=== PATIENT | female | born 1995 | race African-American/Black ===

== ENCOUNTER 2021-03-18 11:43 | Emergency (ER) | payer MEDICAID ==
[2021-03-18] MEDS ORDERED: HYDROmorphone 0.5 MG/0.5 ML Syringe IVPUSH ONE ×2 (12:09→16:55)
[2021-03-18] MEDS ORDERED: Metoclopramide 10 MG/2 ML SDV IVPUSH ONE ×2 (12:10→16:55)
[2021-03-18] MEDS ORDERED: Dextrose 5%-0.9% NaCl 1,000 ML IV SCH ×2 (12:15→14:00)
--- NOTE | 2021-03-18 12:16 | EDM.PDOC ---
ED HPI GENERAL MEDICAL PROBLEM - General Chief Complaint: General Stated Complaint: HEADACHES/SWEATING AND CHILLS/ CANCER PATIENT Time Seen by Provider: 03/18/21 12:00 Source of Information: Reports: Patient History Limitations: Reports: No Limitations - History of Present Illness INITIAL COMMENTS - FREE TEXT/NARRATIVE: 26-year-old female of -[place] descent presents to the ED with diffuse abdominal pain nausea, vomiting and fever and chills starting yesterday. Patient states that she has stage III ovarian cancer diagnosed of 2019. She resides primarily in [place] and was set up to start chemotherapy but instead moved out here with her girlfriend and has yet to receive any chemotherapy or oncology consultation. 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 She started having abdominal pains back in August of last year and identified to have a enlarged right ovary in [place] and underwent a surgery to remove her right ovary. The right ovary returned as being cancerous. She therefore required a further midline laparotomy for staging purposes with omental biopsies etc. She has had no other surgery. She reports that she has lost probably 25 pounds in the last 4 months. She can hardly eat at all. She rarely has a bowel movement and is constipated most of the time. Denies any dysuria urgency or frequency at this time. Fever and chills primarily last night and again this morning. Has not been able to eat at all for the last 2 days. She is writhing on the bed and appears very uncomfortable with her abdominal pain. She states she has been using tramadol 50 mg every 6 hours and gabapentin 300 mg once daily for pain relief. She is finding neither one are helping her pain at present. Most of her pain is infraumbilical across the lower abdomen and into her lower back. Onset: Other (Patient has chronic abdominal pain just getting worse the last several days.) Duration: Chronic (Since diagnosis of ovarian malignancy 2019), Getting Worse Location: Reports: Abdomen (Use lower abdominal pain which is constant but getting worse), Back (. Back pain across her lower iliac crest bilaterally.) Quality: Reports: Ache, Other Severity: Severe (Vaginal sharp stabbing pain but otherwise a deep dull aching pain 9 out of 10) Improves with: Reports: None Worsens with: Reports: Other (Is worse with coughing and certain movements. She cannot stand fully erect to walk.) Context: Reports: Other (Known to have stage III ovarian cancer.). Denies: Activity, Exercise, Lifting, Sick Contact, Trauma Associated Symptoms: Reports: Cough, cough w sputum (Smokes and has a bit of a smoker's cough.), Diaphoresis, Fever/Chills ( Rare sputum production usually brownish in color.), Headaches, Loss of Appetite, Malaise, Nausea/Vomiting, Weakness. 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 (For fever relief.) Lower Pelvic Pain Score (Numeric/FACES): 10 - Related Data Allergies Allergy/AdvReac Type Severity Reaction Status Date / Time loracarbef [From Lorabid] Allergy Itching Verified 03/18/21 11:57 Home Meds: Home Meds Gabapentin [Neurontin] 600 mg PO BID #60 tab 03/18/21 [Rx] oxyCODONE HCl/Acetaminophen [Percocet 5-325 mg Tablet] 1 - 2 each PO Q4H PRN #36 tablet 03/18/21 [Rx] Past Medical History Oncologic (Cancer) History: Reports: Ovarian, Other (See Below) Other Oncologic History: ovararies removed - Past Surgical History Female Surgical History: Reports: Other (See Below) (Left ovary was removed at age 17 and apparently was a benign tumor such as a dermoid. Right ovary removed New Year's Ailyn 2020 returned as cancerous. She had a subsequent midline lower abdominal laparotomy for staging and was staged as a T3 in early November this year.) Social & Family History - Tobacco Use Tobacco Use Status *Q: Current Every Day Tobacco User Years of Tobacco use: 10 Packs/Tins Daily: 0.5 - Recreational Drug Use Recreational Drug Use: Yes Recreational Drug Type: Reports: Marijuana/Hashish Other Recreational Drug Type: daily - Living Situation & Occupation Living situation: Reports: with Significant Other (Lives with her girlfriend.) Occupation: Unemployed Social History Comment: Recently relocated to [facility] from [place], [place] ED ROS GENERAL - Review of Systems Review Of Systems: See Below Constitutional: Reports: Fever, Chills, Weakness, Fatigue, Decreased Appetite (Any 5 pounds in the last 4 months), Weight Loss HEENT: Reports: No Symptoms Respiratory: Reports: No Symptoms Cardiovascular: Reports: No Symptoms Endocrine: Reports: Fatigue GI/Abdominal: Reports: Abdominal Pain (Chronic abdominal pain for the last 3 months.), Constipation ( Gradually getting worse across the lower abdomen into her back.), Decreased Appetite (Marked decrease in appetite. She is reports nausea inhibits her ability to eat much.), Nausea, Vomiting (Did vomit last n ight. Bilious emesis.). Denies: Difficulty Swallowing, Hematemesis, Hematochezia : Reports: No Symptoms Musculoskeletal: Reports: Back Pain (Furred from the abdomen. Feels it in her iliac crests and posterior iliac crests and sacrum.) Skin: Reports: No Symptoms Neurological: Reports: No Symptoms Psychiatric: Reports: No Symptoms Hematologic/Lymphatic: Reports: No Symptoms Immunologic: Reports: No Symptoms ED EXAM, GENERAL - Physical Exam Exam: See Below Exam Limited By: No Limitations General Appearance: Alert, WD/WN, Moderate Distress (Patient is writhing on the bed from side to side curled up in the position. She prefers to lie on her right side.), Other (Temperature is 36.6 according to the nurse. However the patient does feel warm to palpation combined with having a fever. Heart rate is 98 in sinus respiratory it is 20 with O2 sats 100% room air BP 113/89.) Eye Exam: Bilateral Eye: Normal Inspection (No scleral icterus or blepharal pallor.), PERRL Throat/Mouth: Normal Inspection, Normal Lips, Normal Oropharynx ( moist.), Other (Tongue is) Head: Atraumatic, Normocephalic Neck: Normal Inspection, Supple, Non-Tender, Full Range of Motion. No: Lymphadenopathy (L), Lymphadenopathy (R) Respiratory/Chest: Lungs Clear, Normal Breath Sounds (Mild tachypnea.), Respiratory Distress. No: Decreased Breath Sounds, Crackles, Rales, Rhonchi Cardiovascular: Normal Peripheral Pulses, Regular Rate, Rhythm, No Edema, No Gallop, No Murmur, No Rub Peripheral Pulses: 3+: Carotid (L), Carotid (R), Posterior Tibial (L), Posterior Tibial (R), Dorsalis Pedis (L), Dorsalis Pedis (R) GI/Abdominal: No Organomegaly (Occult to palpate any organomegaly due to abdominal pain. I it appears that she does have peritonitis or peritoneal infiltrative cancer causing pain), Guarding, Tender (Generalized abdominal tenderness worse periumbilically and across both lower quadrants and suprapubically. There is guarding present.), Abnormal Bowel Sounds (All sounds are present but are few and far between.), Other (She has a Pfannenstiel incision across her lower abdomen which she states has been open twice. She had a midline laparotomy that was periumbilical to the pubic symphysis for staging of the cancer in early November of this year.). No: Rigid, Rebound Back Exam: Decreased Range of Motion. No: CVA Tenderness (L), CVA Tenderness (R) Extremities: Normal Inspection, Normal Range of Motion, Non-Tender, No Pedal Edema Neurological: Alert, Oriented, CN II-XII Intact, Normal Cognition, No Motor/Sensory Deficits. No: Normal Gait (Patient cannot stand fully erect to walk.) Psychiatric: Other (Good deal of pain.) Skin Exam: Warm, Dry, Intact, Normal Color, No Rash #1 Interpretation EKG Date: 03/18/21 Time: 13:04 Rhythm: NSR Rate (Beats/Min): 70 [place]: Normal P-Wave: Present QRS: Normal (Short LA interval) ST-T: Other (Nonspecific T wave flattening aVL) QT: Prolonged (Minimally prolonged) EKG Interpretation Comments: Borderline ECG Course - Vital Signs Last Recorded V/S: Last Vital Signs Temp 36.6 C 03/18/21 17:38 Pulse 72 03/18/21 17:38 Resp 18 03/18/21 17:38 BP 129/70 03/18/21 17:38 Pulse Ox 100 03/18/21 17:38 - Orders/Labs/Meds Orders: Active Orders 24 hr Category Date Time Status CULTURE BLOOD [BC] Stat Lab 03/18/21 12:37 Received CULTURE BLOOD [BC] Stat Lab 03/18/21 12:50 Received Dextrose 5%-0.9% NaCl [Dextrose 5%-Normal Saline] 1,000 Med 03/18/21 14:00 Active ml IV ASDIRECTED Sodium Chloride 0.9% [Saline Flush] Med 03/18/21 14:20 Active 10 ml FLUSH ONETIME PRN Blood Culture x2 Reflex Set [OM.PC] Stat Oth 03/18/21 12:11 Ordered Medication Orders Dextrose/Sodium Chloride (Dextrose 5%-Normal Saline) 1,000 mls @ 999 mls/hr IV ASDIRECTED [facility] Sodium Chloride (Sodium Chloride 0.9% 10 Ml Syringe) 10 ml FLUSH ONETIME PRN PRN Reason: IV FLUSH Last Admin: 03/18/21 14:36 Dose: 10 ml Documented by: ABEBE Labs: Laboratory Tests 03/18/21 03/18/21 03/18/21 Range/Units 12:50 12:50 12:50 WBC 6.46 (3.98-10.04) K/mm3 RBC 4.67 (3.98-5.22) M/mm3 Hgb 10.9 L (11.2-15.7) gm/dl Hct 34.3 (34.1-44.9) % MCV 73.4 L (79.4-94.8) fl MCH 23.3 L (25.6-32.2) pg MCHC 31.8 L (32.2-35.5) g/dl RDW Std Deviation 40.2 (36.4-46.3) fL Plt Count 559 H (182-369) K/mm3 MPV 9.0 L (9.4-12.3) fl Neutrophils % (Manual) 61 H (40-60) % Band Neutrophils % 0 (0-10) % Lymphocytes % (Manual) 23 (20-40) % Atypical Lymphs % 0 % Monocytes % (Manual) 14 H (2-10) % Eosinophils % (Manual) 2 (0.7-5.8) % Basophils % (Manual) 0 L (0.1-1.2) Platelet Estimate Adequate Polychromasia 2+ moderate Anisocytosis 2+ moderate Macrocytosis 2+ moderate RBC Morph Comment Abnormal ESR (0-20) mm/hr PT 11.2 (9.7-12.0) SECONDS INR 1.05 APTT 22.9 (21.7-31.4) SECONDS Sodium 141 (136-145) mEq/L Potassium 3.9 (3.5-5.1) mEq/L Chloride 101 (98-107) mEq/L Carbon Dioxide 27 (21-32) mEq/L Anion Gap 16.9 H (5-15) BUN 11 (7-18) mg/dL Creatinine 0.9 (0.55-1.02) mg/dL Est Cr Clr Drug Dosing 64.36 mL/min Estimated GFR (MDRD) > 60 (>60) mL/min BUN/Creatinine Ratio 12.2 L (14-18) Glucose 73 L (74-106) mg/dL Lactic Acid (0.4-2.0) mmol/L Calcium 10.5 H (8.5-10.1) mg/dL Magnesium 2.1 (1.8-2.4) mg/dl Total Bilirubin 0.8 (0.2-1.0) mg/dL AST 23 (15-37) U/L ALT 19 (14-59) U/L Alkaline Phosphatase 86 (46-116) U/L C-Reactive Protein <0.2 (<1.0) mg/dL Total Protein 8.7 H (6.4-8.2) g/dl Albumin 4.1 (3.4-5.0) g/dl Globulin 4.6 gm/dL Albumin/Globulin Ratio 0.9 L (1-2) Lipase (73-393) U/L Urine Color (Yellow) Urine Appearance (Clear) Urine pH (5.0-8.0) Ur Specific [place] (1.005-1.030) Urine Protein (Negative) Urine Glucose (UA) (Negative) Urine Ketones (Negative) Urine Occult Blood (Negative) Urine Nitrite (Negative) Urine Bilirubin (Negative) Urine Urobilinogen (0.2-1.0) Ur Leukocyte Esterase (Negative) Urine RBC (0-5) /hpf Urine WBC (0-5) /hpf Ur Squamous Epith Cells (0-5) /hpf Amorphous Sediment (NOT SEEN) /hpf Urine Bacteria (FEW) /hpf Urine Mucus (FEW) /hpf Ketones (0.0-0.3) mM Hepatitis C Antibody (NEGATIVE) SARS-CoV-2 RNA (SCOTT) (NEGATIVE) 03/18/21 03/18/21 03/18/21 Range/Units 12:50 12:50 12:50 WBC (3.98-10.04) K/mm3 RBC (3.98-5.22) M/mm3 Hgb (11.2-15.7) gm/dl Hct (34.1-44.9) % MCV (79.4-94.8) fl MCH (25.6-32.2) pg MCHC (32.2-35.5) g/dl RDW Std Deviation (36.4-46.3) fL Plt Count (182-369) K/mm3 MPV (9.4-12.3) fl Neutrophils % (Manual) (40-60) % Band Neutrophils % (0-10) % Lymphocytes % (Manual) (20-40) % Atypical Lymphs % % Monocytes % (Manual) (2-10) % Eosinophils % (Manual) (0.7-5.8) % Basophils % (Manual) (0.1-1.2) Platelet Estimate Polychromasia Anisocytosis Macrocytosis RBC Morph Comment ESR 19 (0-20) mm/hr PT (9.7-12.0) SECONDS INR APTT (21.7-31.4) SECONDS Sodium (136-145) mEq/L Potassium (3.5-5.1) mEq/L Chloride (98-107) mEq/L Carbon Dioxide (21-32) mEq/L Anion Gap (5-15) BUN (7-18) mg/dL Creatinine (0.55-1.02) mg/dL Est Cr Clr Drug Dosing mL/min Estimated GFR (MDRD) (>60) mL/min BUN/Creatinine Ratio (14-18) Glucose (74-106) mg/dL Lactic Acid 2.2 H* (0.4-2.0) mmol/L Calcium (8.5-10.1) mg/dL Magnesium (1.8-2.4) mg/dl Total Bilirubin (0.2-1.0) mg/dL AST (15-37) U/L ALT (14-59) U/L Alkaline Phosphatase (46-116) U/L C-Reactive Protein (<1.0) mg/dL Total Protein (6.4-8.2) g/dl Albumin (3.4-5.0) g/dl Globulin gm/dL Albumin/Globulin Ratio (1-2) Lipase (73-393) U/L Urine Color (Yellow) Urine Appearance (Clear) Urine pH (5.0-8.0) Ur Specific [place] (1.005-1.030) Urine Protein (Negative) Urine Glucose (UA) (Negative) Urine Ketones (Negative) Urine Occult Blood (Negative) Urine Nitrite (Negative) Urine Bilirubin (Negative) Urine Urobilinogen (0.2-1.0) Ur Leukocyte Esterase (Negative) Urine RBC (0-5) /hpf Urine WBC (0-5) /hpf Ur Squamous Epith Cells (0-5) /hpf Amorphous Sediment (NOT SEEN) /hpf Urine Bacteria (FEW) /hpf Urine Mucus (FEW) /hpf Ketones 0.02 (0.0-0.3) mM Hepatitis C Antibody (NEGATIVE) SARS-CoV-2 RNA (SCOTT) (NEGATIVE) 03/18/21 03/18/21 03/18/21 Range/Units 12:50 12:50 15:10 WBC (3.98-10.04) K/mm3 RBC (3.98-5.22) M/mm3 Hgb (11.2-15.7) gm/dl Hct (34.1-44.9) % MCV (79.4-94.8) fl MCH (25.6-32.2) pg MCHC (32.2-35.5) g/dl RDW Std Deviation (36.4-46.3) fL Plt Count (182-369) K/mm3 MPV (9.4-12.3) fl Neutrophils % (Manual) (40-60) % Band Neutrophils % (0-10) % Lymphocytes % (Manual) (20-40) % Atypical Lymphs % % Monocytes % (Manual) (2-10) % Eosinophils % (Manual) (0.7-5.8) % Basophils % (Manual) (0.1-1.2) Platelet Estimate Polychromasia Anisocytosis Macrocytosis RBC Morph Comment ESR (0-20) mm/hr PT (9.7-12.0) SECONDS INR APTT (21.7-31.4) SECONDS Sodium (136-145) mEq/L Potassium (3.5-5.1) mEq/L Chloride (98-107) mEq/L Carbon Dioxide (21-32) mEq/L Anion Gap (5-15) BUN (7-18) mg/dL Creatinine (0.55-1.02) mg/dL Est Cr Clr Drug Dosing mL/min Estimated GFR (MDRD) (>60) mL/min BUN/Creatinine Ratio (14-18) Glucose (74-106) mg/dL Lactic Acid (0.4-2.0) mmol/L Calcium (8.5-10.1) mg/dL Magnesium (1.8-2.4) mg/dl Total Bilirubin (0.2-1.0) mg/dL AST (15-37) U/L ALT (14-59) U/L Alkaline Phosphatase (46-116) U/L C-Reactive Protein (<1.0) mg/dL Total Protein (6.4-8.2) g/dl Albumin (3.4-5.0) g/dl Globulin gm/dL Albumin/Globulin Ratio (1-2) Lipase 125 (73-393) U/L Urine Color Yellow (Yellow) Urine Appearance Slt cloudy H (Clear) Urine pH 7.0 (5.0-8.0) Ur Specific [place] 1.015 (1.005-1.030) Urine Protein Negative (Negative) Urine Glucose (UA) Negative (Negative) Urine Ketones Negative (Negative) Urine Occult Blood Negative (Negative) Urine Nitrite Negative (Negative) Urine Bilirubin Negative (Negative) Urine Urobilinogen 1.0 (0.2-1.0) Ur Leukocyte Esterase Negative (Negative) Urine RBC 0-5 (0-5) /hpf Urine WBC 0-5 (0-5) /hpf Ur Squamous Epith Cells 0-5 (0-5) /hpf Amorphous Sediment Few H (NOT SEEN) /hpf Urine Bacteria Moderate H (FEW) /hpf Urine Mucus Few (FEW) /hpf Ketones (0.0-0.3) mM Hepatitis C Antibody Negative (NEGATIVE) SARS-CoV-2 RNA (SCOTT) (NEGATIVE) 03/18/21 03/18/21 Range/Units 15:15 16:15 WBC (3.98-10.04) K/mm3 RBC (3.98-5.22) M/mm3 Hgb (11.2-15.7) gm/dl Hct (34.1-44.9) % MCV (79.4-94.8) fl MCH (25.6-32.2) pg MCHC (32.2-35.5) g/dl RDW Std Deviation (36.4-46.3) fL Plt Count (182-369) K/mm3 MPV (9.4-12.3) fl Neutrophils % (Manual) (40-60) % Band Neutrophils % (0-10) % Lymphocytes % (Manual) (20-40) % Atypical Lymphs % % Monocytes % (Manual) (2-10) % Eosinophils % (Manual) (0.7-5.8) % Basophils % (Manual) (0.1-1.2) Platelet Estimate Polychromasia Anisocytosis Macrocytosis RBC Morph Comment ESR (0-20) mm/hr PT (9.7-12.0) SECONDS INR APTT (21.7-31.4) SECONDS Sodium (136-145) mEq/L Potassium (3.5-5.1) mEq/L Chloride (98-107) mEq/L Carbon Dioxide (21-32) mEq/L Anion Gap (5-15) BUN (7-18) mg/dL Creatinine (0.55-1.02) mg/dL Est Cr Clr Drug Dosing mL/min Estimated GFR (MDRD) (>60) mL/min BUN/Creatinine Ratio (14-18) Glucose (74-106) mg/dL Lactic Acid 1.3 (0.4-2.0) mmol/L Calcium (8.5-10.1) mg/dL Magnesium (1.8-2.4) mg/dl Total Bilirubin (0.2-1.0) mg/dL AST (15-37) U/L ALT (14-59) U/L Alkaline Phosphatase (46-116) U/L C-Reactive Protein (<1.0) mg/dL Total Protein (6.4-8.2) g/dl Albumin (3.4-5.0) g/dl Globulin gm/dL Albumin/Globulin Ratio (1-2) Lipase (73-393) U/L Urine Color (Yellow) Urine Appearance (Clear) Urine pH (5.0-8.0) Ur Specific [place] (1.005-1.030) Urine Protein (Negative) Urine Glucose (UA) (Negative) Urine Ketones (Negative) Urine Occult Blood (Negative) Urine Nitrite (Negative) Urine Bilirubin (Negative) Urine Urobilinogen (0.2-1.0) Ur Leukocyte Esterase (Negative) Urine RBC (0-5) /hpf Urine WBC (0-5) /hpf Ur Squamous Epith Cells (0-5) /hpf Amorphous Sediment (NOT SEEN) /hpf Urine Bacteria (FEW) /hpf Urine Mucus (FEW) /hpf Ketones (0.0-0.3) mM Hepatitis C Antibody (NEGATIVE) SARS-CoV-2 RNA (SCOTT) Negative (NEGATIVE) Meds: Medications Generic Name Dose Route Start Last Admin Trade Name Abel PRN Reason Stop Dose Admin Dextrose/Sodium Chloride 1,000 mls @ 999 mls/hr 03/18/21 14:00 Dextrose 5%-Normal Saline IV ASDIRECTED RONNIE Sodium Chloride 10 ml 03/18/21 14:20 03/18/21 14:36 Sodium Chloride 0.9% 10 Ml Syringe FLUSH 10 ml ONETIME PRN Administration IV FLUSH Discontinued Medications Generic Name Dose Route Start Last Admin Trade Name Lucienq PRN Reason Stop Dose Admin Acetaminophen 650 mg 03/18/21 12:38 03/18/21 12:57 Acetaminophen 325 Mg Tab PO 03/18/21 12:39 650 mg NOW STA Administration Hydromorphone HCl 0.5 mg 03/18/21 12:09 03/18/21 12:41 Hydromorphone 0.5 Mg/0.5 Ml Syringe IVPUSH 03/18/21 12:10 0.5 mg ONETIME ONE Administration Hydromorphone HCl 0.5 mg 03/18/21 16:55 03/18/21 17:14 Hydromorphone 0.5 Mg/0.5 Ml Syringe IVPUSH 03/18/21 16:56 0.5 mg ONETIME ONE Administration Dextrose/Sodium Chloride 1,000 mls @ 500 mls/hr 03/18/21 12:15 03/18/21 14:10 Dextrose 5%-Normal Saline IV 999 mls/hr ASDIRECTED RONNIE Infusion Iopamidol 100 ml 03/18/21 14:20 03/18/21 14:36 Iopamidol 612 Mg/Ml 100 Ml Bottle IVPUSH 03/18/21 14:21 100 ml ONETIME ONE Administration Metoclopramide HCl 5 mg 03/18/21 12:10 03/18/21 12:39 Metoclopramide 10 Mg/2 Ml Sdv IVPUSH 03/18/21 12:11 5 mg ONETIME ONE Administration Metoclopramide HCl 5 mg 03/18/21 16:55 03/18/21 17:12 Metoclopramide 10 Mg/2 Ml Sdv IVPUSH 03/18/21 16:56 5 mg ONETIME ONE Administration - Radiology Interpretation Free Text/Narrative:: 26-year-old female of -[place] descent presents to the ED complaining of diffuse abdominal pain which is chronic for the last 3 months. Patient was diagnosed with right ovarian cancer New 's Ailyn of 2019. She then underwent further laparotomy for staging procedure and was identified to have stage III ovarian cancer. She is originally from [place] and recently relocated to [facility] with her girlfriend. Patient has lost approximately 25 p ounds of weight over the last 4 months. She finds it very difficult to eat much. She is primarily taking fluids. Chronic problems with constipation. Last night she developed fever chills and diaphoresis. This occurred during the night and again this morning. She denies any dysuria. Minimal cough from cigarette smoking. She does not believe she has been in contact with anybody with COVID-19 illness. She gives no history of IV drug abuse. She takes marijuana on a daily basis to help with the nausea . She denies knowing that she would have any hepatitis C or HIV. Patient vomited bilious emesis last night and again this morning. Most of her pain is infraumbilical and across her lower abdomen radiating to her back. It is suspect by history that she has invasion of the omentum and peritoneum from ovarian cancer. Clinically she does not exhibit ascites. Plan she will have 1 view chest x-ray performed. She will have CT of the abdomen with IV contrast only since she cannot keep down oral contrast. She will be given Dilaudid 0.5 mg IV and Reglan 5 mg IV for nausea and pain relief. Lab work will be a septic work-up including lactic acid CRP and sedimentation rate. Serum ketones will also be obtained. IV will be D5 normal saline at 500 mils per hour. - Re-Assessments/Exams Free Text/Narrative Re-Assessment/Exam: 03/18/21 12:48 chest x-ray done portably reveals heart size and mediastinum to be normal. Lungs are clear with no acute parenchymal changes. No pulmonary nodules are seen. Minimal scoliosis appreciated. 03/18/21 13:05 patient reports her pain is down to a 2 and is much more tolerable. Awaiting her renal function before proceeding with CT of the abdomen with IV contrast. 03/18/21 13:55 White blood cell count is normal at 6.46. Differential shows 61% neutrophils. Hemoglobin is low at 10.9 with hematocrit of 34.3. MCV is low at 73.4 suggesting iron deficiency anemia platelet count is elevated at 559,000. The slide reveals 2+ polychromasia. 2+ anisocytosis. 2+ macrocytosis. Sedimentation rate is 19. Sodium is 141 with potassium of 3.9. Chloride 101 with a bicarb of 27. Anion gap mildly elevated at 16.9. BUN is 11 with a creatinine of 0.9 GFR is greater than 60. Glucose is low at 73. Lactic acid is elevated at 2.2. Calcium is 10.5 magnesium is 2.1. Liver function is normal. C-reactive protein is less than 0.2. Total protein 8.7 with an albumin fraction of 4.1 ketones 0.02. Patient will therefore have CT of the abdomen/pelvis performed with IV contrast since renal function is normal. Fluids will be D5 normal saline at 999 mils per hour. With a normal white count and a normal CRP I would not proceed with IV antibiotics at this time. 03/18/21 15:25: CT of the abdomen pelvis has been completed with IV contrast only. Pelvis shows questionable densities. First finding is located within the presacral region measuring 4.2 cm and second lies posterior to the bladder measuring 3.8 cm. Additional third density is noted anterior to the bladder measuring 2.9 cm. Questionable fourth density is seen to the right side of the presacral region measuring 4.3 cm. Visualized lung bases show nothing acute. Liver contains no focal abnormality. Spleen appears to be within normal limits. Adrenal gland shows no nodules. Pancreas shows no abnormality. Gallbladder contains no calcified gallstones. The stomach is half full of food. Kidneys show symmetric contrast enhancement without hydronephrosis or mass. Abdominal aorta shows no aneurysm. No retroperitoneal adenopathy or mesenteric abnormalities are appreciated. No discrete pelvic adenopathy is seen. Delayed images show contrast within the distal ureters and within the urinary bladder. Bone window settings were reviewed which show no acute osseous abnormalities. 03/18/21 16:45 Urinalysis shows it to be slightly cloudy. Leukocyte esterase is negative and the micro reveals no signs of an infection. It does show moderate bacteria. Ketones came back at 0.02. Hepatitis C antibody is negative and the COVID-19 screen was negative as well. Serum lipase is 125. Second lactic acid level was drawn at 1600 hrs. but is not yet available 03/18/21 17:24 I am placing numbers in the chart as we try to get records from [facility] in [place] where the patient had her diagnosis made but they were closed and medical records would not answer. She did see a doctor named Tay Escobar? Believes that is the correct spelling. He is an [employer] physician. His office number was [phone]. Medical records at that hospital is [phone]. I have asked the patient to follow-up with Dr. Monica Armstrong here in [place] to manage her pain management and to get her into a oncologist as soon as able. She did not wish to be transferred to [place] today. Also they would not have much of a plan in order since tomorrow is Monday and they do not have any medical records available to them. Medications have been changed with discontinuation of tramadol and replace it with Percocet 5/325 mg ideally 1 tablet every 4-6 hours as needed for pain relief. Increase her gabapentin to 600 mg at bedtime for the next week and then to be 600 mg twice daily morning and bedtime for pain relief. Also placed on MiraLAX 17 g daily to prevent constipation while taking pain medications. Advised taking 5 scoops of MiraLAX today with 20 ounces of Gatorade by mouth once to get her bowels working today. The temperature was 97.7 degrees and she does not feel warm to palpation. 03/18/21 17:55: Second lactic acid is down to 1.3. 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 Instructions: Ovarian Cancer, Constipation, Adult Referrals: PCP,Not In Area [Primary Care Provider] - Forms: ED Department Discharge Additional Instructions: Evaluation in the emergency room today in regards to diffuse lower abdominal pain with known diagnosis of stage III ovarian cancer. Diagnosis of ovarian cancer occurred around this year with subsequent laparotomy performed for staging procedure in early November of this year while in [place]. At this time you have not pursued chemotherapy treatment.. In the emergency room today we identified that you were mildly dehydrated. There was no signs of any infection although you did have a low-grade fever. Chest x-ray was completely normal. Urinalysis was completely normal. CT of the abdomen and pelvis was performed which shows 4-5 large nodules behind and in front of the urinary bladder which would cause you to have a feeling of need to empty your bladder quite frequently as well as pressure in the perineum and rectum giving with a feeling that you needed to have a bowel movement. The liver did not show any signs of cancer at this time. You were given Dilaudid 0.5 mg IV x2 doses for pain relief which worked well for you. I would suggest a change in your pain management protocol to increase her gabapentin to 600 mg at bedtime for the next week and then you may increase it to 600 mg in the morning and 600 mg at bedtime for pain relief. Stop the 300 mg dosage in the morning or take 2 at bedtime until they are gone. Stop the tramadol as it does not play well with higher doses of gabapentin. We will replace it with Percocet tabs 5/325 mg 1 or 2 tablets I suspect 1 will be enough every 4-6 hours as needed for pain relief. All pain medicine causes constipation. Suggest you purchasing a cookie jar or canister of MiraLAX powder and take 17 g every single day while on pain me dication. I would suggest taking 5 scoops of MiraLAX mixed with 20 ounces of Gatorade today to get your bowels moving overnight and tomorrow. You need to follow-up with a primary care physician here in [place] that can manage your pain and coordinate care with oncology services in [place]. I would suggest arranging an appointment to see Dr. Monica Armstrong [facility] in [facility]. She practices on the third floor of the hospital in the medical clinic. To arrange an appointment please call . Information needs to be received from [facility] in [place] where you were diagnosed with the cancer of the ovary especially for oncology services at [facility] in [place]. Sepsis Event Note (ED) - Focused Exam Vital Signs: Vital Signs Temp Temp Pulse Resp BP Pulse Ox 03/18/21 17:38 36.6 C 72 18 129/70 100 03/18/21 16:32 36.2 C 66 18 123/94 H 100 03/18/21 14:43 36.2 C 78 18 127/85 98 03/18/21 12:57 36.7 C 03/18/21 12:25 36.1 C 90 20 120/84 100 03/18/21 12:03 36.6 C 98 20 113/89 100 - My Orders Last 24 Hours: My Active Orders 03/18/21 12:11 Blood Culture x2 Reflex Set [OM.PC] Stat 03/18/21 12:37 CULTURE BLOOD [BC] Stat 03/18/21 12:50 CULTURE BLOOD [BC] Stat 03/18/21 14:00 Dextrose 5%-0.9% NaCl [Dextrose 5%-Normal Saline] 1,000 ml IV ASDIRECTED 03/18/21 14:20 Sodium Chloride 0.9% [Saline Flush] 10 ml FLUSH ONETIME PRN - Assessment/Plan Last 24 Hours: My Active Orders 03/18/21 12:11 Blood Culture x2 Reflex Set [OM.PC] Stat 03/18/21 12:37 CULTURE BLOOD [BC] Stat 03/18/21 12:50 CULTURE BLOOD [BC] Stat 03/18/21 14:00 Dextrose 5%-0.9% NaCl [Dextrose 5%-Normal Saline] 1,000 ml IV ASDIRECTED 03/18/21 14:20 Sodium Chloride 0.9% [Saline Flush] 10 ml FLUSH ONETIME PRN
[2021-03-18] MEDS ORDERED: Acetaminophen 325 MG Tab PO STA (12:38)
--- NOTE | 2021-03-18 12:47 | CR ---
Chest: Portable view of the chest was obtained. Comparison: No prior chest imaging is available. Heart size and mediastinum are normal. Lungs are clear with no acute parenchymal change. No pulmonary nodules are seen. Minimal scoliosis is noted. Impression: 1. Nothing acute is appreciated on portable chest x-ray. Diagnostic code #2
[2021-03-18] MEDS ORDERED: Sodium Chloride 0.9% 10 ML Syringe FLUSH PRN (14:20)
[2021-03-18] MEDS ORDERED: Iopamidol 612 MG/ML 100 ML Bottle IVPUSH ONE (14:20)
--- NOTE | 2021-03-18 15:05 | CT ---
CT abdomen and pelvis Technique: Multiple axial sections were obtained from above the dome of the diaphragm inferiorly through the pubic symphysis. Intravenous contrast was utilized. Delayed images were obtained through the pelvis. Reconstructed coronal and sagittal images were also obtained. Comparison: No previous abdominal and/or pelvic imaging available. Findings: Pelvis shows questionable densities. First finding is located within the presacral region measuring 4.2 cm and second lies posterior to the bladder measuring 3.8 cm. Additional third density is noted anterior to the bladder measuring 2.9 cm. Questionable fourth density is seen to the right side of the presacral region measuring 4.3 cm. Visualized lung bases show nothing acute. Liver contains no focal abnormality. Spleen appears within normal limits. Adrenal glands show no nodule. Pancreas shows no abnormality. Gallbladder contains no calcified gallstones. Kidneys show symmetric contrast enhancement without hydronephrosis or mass. Abdominal aorta shows no aneurysm. No retroperitoneal adenopathy or mesenteric abnormalities are appreciated. No discrete pelvic adenopathy is seen. Delayed images show contrast within the distal ureters and within the bladder. Bone window settings were reviewed which show no acute osseous abnormality. Impression: 1. Mass-like objects within the pelvis as described above. Difficult to exclude areas of tumor. These could be confirmed with delayed oral contrast study if clinically needed. 2. No additional abnormality is appreciated. Diagnostic code #9
== END 2021-03-18 17:45 | disposition home or self-care (01) ==
LOC: JD.ED 11:43
DX: K59.01 Slow transit constipation (principal); C56.2 Malignant neoplasm of left ovary; C79.89 Secondary malignant neoplasm of other specified sites; M54.9 Dorsalgia, unspecified; Z88.1 Allergy status to other antibiotic agents; Z20.822 Contact with and (suspected) exposure to COVID-19; Z79.899 Other long term (current) drug therapy; Z72.0 Tobacco use
CPT/HCPCS: 36415; 71045; 74177; 80053; 81001; 82009; 83605; 83690; 83735; 85007; 85027; 85610; 85652; 85730; 86140; 86803; 87040; 87635; 93005; 96374; 96375; 96376; 99284; A9270; J1170; J2765; J7042; Q9967; 93010; U0002

== ENCOUNTER 2021-04-16 11:07 | Emergency (ER) | payer MEDICAID ==
[2021-04-16] MEDS ORDERED: HYDROmorphone 1 MG/ML Syringe IM ONE (11:21)
[2021-04-16] MEDS ORDERED: Promethazine 25 MG/ML SDV IM ONE (11:22)
--- NOTE | 2021-04-16 11:23 | EDM.PDOC ---
ED HPI GENERAL MEDICAL PROBLEM - General Chief Complaint: General Stated Complaint: CANCER PT / PAIN ALL OVER Time Seen by Provider: 04/16/21 11:12 Source of Information: Reports: Patient, Family (friend) History Limitations: Reports: No Limitations - History of Present Illness INITIAL COMMENTS - FREE TEXT/NARRATIVE: 26-year-old female of -[place] descent presents to the ED once again primarily for pain management. She has been diagnosed with stage III cancer of the cervix on 2019. This was identified while she was residing in [place]. She was set up for chemotherapy protocol there but elected to move out here with her girlfriend and is yet to see oncology and is currently not receiving any therapy. She continues to have severe abdominal pain rating through to her back. She states she voids about every 15 to 20 minutes to get some relief of the discomfort. She has to strain and push her bowels to work but stool is staying soft. She has been using a combination of gabapentin and Percocet 5/325 mg tablet for pain relief. She has run out of pain medication this is the reason she is attending the ED today. Please refer to notes written on March 18 visit for further information. A CT scan done at that visit revealed for large masses within the pelvis. First finding was located within the presacral region measuring about 4.2 cm and the second and lies posterior to the bladder measuring about 3.8 cm. Additional third density is noted anterior to the bladder measuring 2.9 cm. Questionable fourth density was seen to the right side of the presacral region measuring 4.3 cm. Onset: Other (Patient was diagnosed with cervical cancer with metastatic disease to her pelvis i.e. stage III disease on 2019 in [place]. For whatever reason she is opted not to undergo chemotherapy) Duration: Constant (.), Getting Worse Location: Reports: Abdomen, Back, Pelvis Quality: Reports: Ache, Pressure, Throbbing Severity: Severe Improves with: Reports: Medication (She gets transient relief with Percocet tablets.) Worsens with: Reports: Other (Full bladder will make the pain worse.) Context: Reports: Other (Known to have stage III cervical cancer with multiple nodules present in her pelvis on CT scan done March 18.). Denies: Activity, Exercise, Lifting, Sick Contact, Trauma Associated Symptoms: Reports: No Other Symptoms, Loss of Appetite, Malaise. Denies: Confusion, Chest Pain, Cough, cough w sputum, Diaphoresis, Fever/Chills (Some days are better than others. 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.) Abdominal Pain Score (Numeric/FACES): 10 - Related Data Allergies Allergy/AdvReac Type Severity Reaction Status Date / Time loracarbef [From Lorabid] Allergy Itching Verified 04/16/21 11:15 Home Meds: Home Meds Gabapentin [Neurontin] 600 mg PO BID #60 tab 03/18/21 [Rx] oxyCODONE HCl/Acetaminophen [Percocet 5-325 mg Tablet] 1 - 2 each PO Q4H PRN #36 tablet 03/18/21 [Rx] Gabapentin [Neurontin] 600 mg PO TID #90 tab 04/16/21 [Rx] oxyCODONE HCl/Acetaminophen [Percocet 5-325 mg Tablet] 1 - 2 each PO Q4H PRN #36 tablet 04/16/21 [Rx] 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: 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 (Cancer) History: Reports: Ovarian, Other (See Below) Other Oncologic History: ovararies removed - Past Surgical History Female Surgical History: Reports: Hysterectomy, Other (See Below) Other Female Surgeries/Procedures: cervical cancer Social & Family History - Tobacco Use Tobacco Use Status *Q: Current Every Day Tobacco User Years of Tobacco use: 10 Packs/Tins Daily: 0.5 - Caffeine Use Caffeine Use: Reports: Coffee, Soda - Recreational Drug Use Recreational Drug Use: Yes Drug Use in Last 12 Months: Yes - Living Situation & Occupation Living situation: Reports: with Significant Other (Lives with her girlfriend.) Occupation: Unemployed ED ROS GENERAL - Review of Systems Review Of Systems: See Below Constitutional: Reports: Malaise, Weakness, Fatigue, Decreased Appetite, Weight Loss. Denies: Fever, Chills HEENT: Reports: No Symptoms Respiratory: Reports: No Symptoms Cardiovascular: Reports: No Symptoms Endocrine: Reports: Fatigue GI/Abdominal: Reports: Abdominal Pain (See history of present illness.), Nausea (Rare.). Denies: Constipation, Diarrhea, Vomiting : Reports: Frequency, Pain. Denies: Incontinence (She voids almost every 20 minutes to get some relief of the pelvic pain.), Irregular Menses Musculoskeletal: Reports: Back Pain (Diffuse low back sacral pain. Known to have a tumor resting on the presacral area over the hypogastric nerve plexus) Skin: Reports: No Symptoms Neurological: Reports: No Symptoms Psychiatric: Reports: No Symptoms Hematologic/Lymphatic: Reports: No Symptoms ED EXAM, GENERAL - Physical Exam Exam: See Below Exam Limited By: No Limitations General Appearance: Alert, WD/WN, Moderate Distress, Other (She prefers to lie curled up in the position left lateral decubitus position. She answers all questions appropriately. Temperature is 36.3 degrees with a heart rate of 102 and sinus respiratory to 20 with O2 sats of 100%. BP is 121/80.) Eye Exam: Bilateral Eye: Normal Inspection (No scleral icterus no blepharal pallor.), PERRL Throat/Mouth: Other Neck: Normal Inspection (Tongue is mildly dry and coated.), Supple, Non-Tender, Full Range of Motion. No: Lymphadenopathy (L), Lymphadenopathy (R) Respiratory/Chest: No Respiratory Distress, Lungs Clear, Normal Breath Sounds, No Accessory Muscle Use Cardiovascular: Normal Peripheral Pulses, Regular Rate, Rhythm, No Edema, No Gallop, No Murmur, No Rub Peripheral Pulses: 3+: Carotid (L), Carotid (R), Posterior Tibial (L), Posterior Tibial (R), Dorsalis Pedis (L), Dorsalis Pedis (R) GI/Abdominal: Normal Bowel Sounds, Tender (Tender lower abdomen from infraumbilical area to pubic symphysis.) Back Exam: Normal Inspection, Full Range of Motion. No: CVA Tenderness (L), CVA Tenderness (R), Decreased Range of Motion Extremities: Normal Inspection, Normal Range of Motion, Non-Tender, No Pedal Edema Neurological: Alert, Oriented, CN II-XII Intact, Normal Cognition Psychiatric: Normal Affect, Normal Mood Skin Exam: Warm, Dry, Intact, Normal Color, No Rash Course - Vital Signs Last Recorded V/S: Last Vital Signs Temp 36.3 C 04/16/21 11:13 Pulse 102 H 04/16/21 11:13 Resp 20 04/16/21 11:13 BP 121/80 04/16/21 11:13 Pulse Ox 100 04/16/21 11:13 - Orders/Labs/Meds Orders: Active Orders 24 hr Category Date Time Status Bladder Scan [RC] ASDIRECTED Care 04/16/21 11:21 Active URINALYSIS W/MICROSCOPIC [UA W/MICROSCOPIC] [URIN] Stat Lab 04/16/21 12:00 Received Meds: Medications Discontinued Medications Generic Name Dose Route Start Last Admin Trade Name Abel PRN Reason Stop Dose Admin Hydromorphone HCl 1 mg 04/16/21 11:21 04/16/21 11:35 Hydromorphone 1 Mg/Ml Syringe IM 04/16/21 11:22 1 mg ONETIME ONE Administration Promethazine HCl 12.5 mg 04/16/21 11:22 04/16/21 11:35 Promethazine 25 Mg/Ml Sdv IM 04/16/21 11:23 12.5 mg ONETIME ONE Administration - Radiology Interpretation Free Text/Narrative:: 26-year-old female of -Romanian descent presents once again to the ED primarily for pain management. Patient has been diagnosed with cancer of the cervix with metastatic disease to her pelvis on 2019. This diagnosis was made in [place]. She was offered chemotherapy in [place] but opted to come out to [place] to spend time with her girlfriend as the prognosis is grim. She was diagnosed with stage III disease with metastatic disease in multiple areas of her pelvis. She has yet to seek oncologist opinion or chemotherapy. She is having significant urinary frequency I believe because of pelvic tumor invasion in the bladder and this is on the way she can get relief. We did a post residual bladder scan on her today and it revealed only 30 mils in her bladder. I we will will refill her Percocet tabs 5/325 mg strength which she usually takes 1 tablet every 4-6 hours for pain relief. 36 tablets were provided. I increased her gabapentin to 600 mg 3 times daily from twice daily dosing. She needs to find a primary care physician or follow-up with oncology as she had been directed to do so on last visit. - Re-Assessments/Exams Free Text/Narrative Re-Assessment/Exam: 04/16/21 12:02 post residual urine on bladder scan is only 30 mils. Therefore the irritation of her urinary bladder is secondary to the tumors adjacent to the bladder on CT scan done March 18. Prescription has been written for Percocet tabs 5/325 mg strength 1 or 2 every 4-6 hours necessary for pain relief. She tends to take only 1 at a time. Departure - Departure Time of Disposition: 12:06 Disposition: Home, Self-Care 01 Condition: Serious Clinical Impression: Cervical cancer, FIGO stage IIA1, Encounter for pain management - Discharge Information *PRESCRIPTION DRUG MONITORING PROGRAM REVIEWED*: Not Applicable *COPY OF PRESCRIPTION DRUG MONITORING REPORT IN PATIENT FRITZ: Not Applicable Prescriptions: Gabapentin [Neurontin] 600 mg PO TID #90 tab oxyCODONE HCl/Acetaminophen [Percocet 5-325 mg Tablet] 1 - 2 each PO Q4H PRN #36 tablet PRN Reason: pain relief. Referrals: PCP,None [Primary Care Provider] - Forms: ED Department Discharge Additional Instructions: Evaluation in the emergency room today in regards to known primary cancer of the cervix with metastases to the pelvis. Continued irritation of the urinary bladder from pelvic tumors and pressure in the pelvis again from pelvic tumors clinically. These were identified on CT scan done March 18 when you were in the ED. A bladder scan done today after you had passed your water revealed that you are not retaining urine. There was only 30 mils of urine left in the bladder which is in the normal range. Continue treatment with gabapentin although I would suggest increasing the dosage to 600 mg 3 times daily from twice daily use. Continue Percocet tabs 5/325 mg strength 1 or 2 tablets every 4-6 hours necessary for pain relief. Follow-up with oncologist when able. Sepsis Event Note (ED) - Evaluation Sepsis Screening Result: No Definite Risk - Focused Exam Vital Signs: Vital Signs Temp Pulse Resp BP Pulse Ox 04/16/21 11:13 36.3 C 102 H 20 121/80 100 - My Orders Last 24 Hours: My Active Orders 04/16/21 11:21 Bladder Scan [RC] ASDIRECTED 04/16/21 12:00 URINALYSIS W/MICROSCOPIC [UA W/MICROSCOPIC] [URIN] Stat - Assessment/Plan Last 24 Hours: My Active Orders 04/16/21 11:21 Bladder Scan [RC] ASDIRECTED 04/16/21 12:00 URINALYSIS W/MICROSCOPIC [UA W/MICROSCOPIC] [URIN] Stat
== END 2021-04-16 12:40 | disposition home or self-care (01) ==
LOC: JD.ED 11:07
DX: C76.0 Malignant neoplasm of head, face and neck (principal); Z88.8 Allergy status to other drugs, medicaments and biological substances; Z79.899 Other long term (current) drug therapy; Z72.0 Tobacco use
CPT/HCPCS: 51798; 81001; 96372; 99284; J1170; J2550

== ENCOUNTER 2021-04-28 06:38 | Emergency (ER) | payer MEDICAID ==
--- NOTE | 2021-04-28 07:13 | EDM.PDOC ---
ED HPI GENERAL MEDICAL PROBLEM - General Chief Complaint: Chest Pain Stated Complaint: [facility] Time Seen by Provider: 04/28/21 07:05 - History of Present Illness INITIAL COMMENTS - FREE TEXT/NARRATIVE: 26-year-old female presents the emergency room with abdominal and chest pain. This pain started to worsen last night and progressively got much worse this morning. Patient tried Percocet and this did not seem to help. Apparently patient has a history of primary ovarian cancer with some degree of metastatic disease. The patient was diagnosed the way I understand it early this last winter but she has not started treatment for this yet. The patient is in quite a bit of pain and is unable to provide much history. Chest Pain Score (Numeric/FACES): 10 - Related Data Allergies Allergy/AdvReac Type Severity Reaction Status Date / Time loracarbef [From Lorabid] Allergy Itching Verified 04/16/21 11:15 Home Meds: Home Meds Gabapentin [Neurontin] 600 mg PO BID #60 tab 03/18/21 [Rx] oxyCODONE HCl/Acetaminophen [Percocet 5-325 mg Tablet] 1 - 2 each PO Q4H PRN #36 tablet 04/16/21 [Rx] Past Medical History [employer] History: Reports: Oncologic (Cancer) History: Reports: Ovarian, Other (See Below) Other Oncologic History: ovararies removed - Past Surgical History Female Surgical History: Reports: Hysterectomy, Other (See Below) Other Female Surgeries/Procedures: cervical cancer Social & Family History - Tobacco Use Tobacco Use Status *Q: Unknown Ever Used Tobacco - Caffeine Use Caffeine Use: Reports: Coffee, Soda - Living Situation & Occupation Living situation: Reports: with Significant Other (Lives with her girlfriend.) Occupation: Unemployed ED ROS GENERAL - Review of Systems Review Of Systems: See Below Constitutional: Denies: Chills HEENT: Reports: No Symptoms Respiratory: Reports: Pleuritic Chest Pain Cardiovascular: Reports: Chest Pain GI/Abdominal: Reports: Abdominal Pain : Reports: No Symptoms ED EXAM, GENERAL - Physical Exam Exam: See Below Exam Limited By: No Limitations General Appearance: Alert, Severe Distress Head: Atraumatic, Normocephalic Neck: Normal Inspection, Supple, Non-Tender, Full Range of Motion Respiratory/Chest: No Respiratory Distress, Lungs Clear, Normal Breath Sounds, Chest Non-Tender Cardiovascular: Regular Rate, Rhythm, No Edema, No Murmur GI/Abdominal: Normal Bowel Sounds, Soft, Tender (Has diffuse tenderness but it is much worse in the epigastric area. No rigidity or rebound) Back Exam: Normal Inspection. No: CVA Tenderness (L), CVA Tenderness (R) Extremities: Normal Inspection, No Pedal Edema Psychiatric: Anxious #1 Interpretation EKG Date: 04/28/21 Rhythm: NSR Rate (Beats/Min): 81 [place]: Normal P-Wave: Present QRS: Normal ST-T: Normal (T wave flattening in V2 inverted T waves in V3) QT: Normal Comparison: NA - No Prior EKG EKG Interpretation Comments: Borderline EKG there is some anterior T wave flattening Course - Vital Signs Last Recorded V/S: Last Vital Signs Temp 36.8 C 04/28/21 06:53 Pulse 99 04/28/21 06:53 Resp 20 04/28/21 06:53 BP 125/108 H 04/28/21 06:53 Pulse Ox 100 04/28/21 06:53 - Orders/Labs/Meds Orders: Active Orders 24 hr Category Date Time Status EKG Documentation Completion [RC] STAT Care 04/28/21 07:15 Active Sodium Chloride 0.9% [Normal Saline] 100 ml Med 04/28/21 09:45 Active IV ASDIRECTED Sodium Chloride 0.9% [Saline Flush] Med 04/28/21 09:06 Active 10 ml FLUSH ONETIME PRN Medication Orders Sodium Chloride (Normal Saline) 100 mls @ 75 mls/hr IV ASDIRECTED RONNIE Last Admin: 04/28/21 10:40 Dose: 75 mls/hr Documented by: ABEBE Sodium Chloride (Sodium Chloride 0.9% 10 Ml Syringe) 10 ml FLUSH ONETIME PRN PRN Reason: IV FLUSH Last Admin: 04/28/21 10:40 Dose: 10 ml Documented by: ABEBE Labs: Laboratory Tests 04/28/21 04/28/21 04/28/21 Range/Units 06:50 06:50 08:30 WBC 7.75 (3.98-10.04) K/mm3 RBC 4.97 (3.98-5.22) M/mm3 Hgb 11.5 (11.2-15.7) gm/dl Hct 35.7 (34.1-44.9) % MCV 71.8 L (79.4-94.8) fl MCH 23.1 L (25.6-32.2) pg MCHC 32.2 (32.2-35.5) g/dl RDW Std Deviation 43.8 (36.4-46.3) fL Plt Count 573 H (182-369) K/mm3 MPV 9.0 L (9.4-12.3) fl Neut % (Auto) 74.7 H (34.0-71.1) % Lymph % (Auto) 13.7 L (19.3-51.7) % [place] % (Auto) 9.2 (4.7-12.5) % Eos % (Auto) 1.4 (0.7-5.8) Baso % (Auto) 0.9 (0.1-1.2) % Neut # (Auto) 5.79 (1.56-6.13) K/mm3 Lymph # (Auto) 1.06 L (1.18-3.74) K/mm3 [place] # (Auto) 0.71 H (0.24-0.36) K/mm3 Eos # (Auto) 0.11 (0.04-0.36) K/mm3 Baso # (Auto) 0.07 (0.01-0.08) K/mm3 Manual Slide Review Abnormal smear D-Dimer, Quantitative 1.86 H (0.19-0.50) mg/L Sodium 140 (136-145) mEq/L Potassium 3.5 (3.5-5.1) mEq/L Chloride 99 (98-107) mEq/L Carbon Dioxide 29 (21-32) mEq/L Anion Gap 15.5 H (5-15) BUN 13 (7-18) mg/dL Creatinine 1.0 (0.55-1.02) mg/dL Est Cr Clr Drug Dosing TNP Estimated GFR (MDRD) > 60 (>60) mL/min BUN/Creatinine Ratio 13.0 L (14-18) Glucose 90 (70-99) mg/dL Calcium 10.7 H (8.5-10.1) mg/dL Total Bilirubin 0.6 (0.2-1.0) mg/dL AST 30 (15-37) U/L ALT 17 (14-59) U/L Alkaline Phosphatase 102 (46-116) U/L Troponin I < 0.017 (0.00-0.056) ng/mL Total Protein 8.8 H (6.4-8.2) g/dl Albumin 4.0 (3.4-5.0) g/dl Globulin 4.8 gm/dL Albumin/Globulin Ratio 0.8 L (1-2) Urine Color (Yellow) Urine Appearance (Clear) Urine pH (5.0-8.0) Ur Specific [place] (1.005-1.030) Urine Protein (Negative) Urine Glucose (UA) (Negative) Urine Ketones (Negative) Urine Occult Blood (Negative) Urine Nitrite (Negative) Urine Bilirubin (Negative) Urine Urobilinogen (0.2-1.0) Ur Leukocyte Esterase (Negative) 04/28/21 Range/Units 12:10 WBC (3.98-10.04) K/mm3 RBC (3.98-5.22) M/mm3 Hgb (11.2-15.7) gm/dl Hct (34.1-44.9) % MCV (79.4-94.8) fl MCH (25.6-32.2) pg MCHC (32.2-35.5) g/dl RDW Std Deviation (36.4-46.3) fL Plt Count (182-369) K/mm3 MPV (9.4-12.3) fl Neut % (Auto) (34.0-71.1) % Lymph % (Auto) (19.3-51.7) % [place] % (Auto) (4.7-12.5) % Eos % (Auto) (0.7-5.8) Baso % (Auto) (0.1-1.2) % Neut # (Auto) (1.56-6.13) K/mm3 Lymph # (Auto) (1.18-3.74) K/mm3 [place] # (Auto) (0.24-0.36) K/mm3 Eos # (Auto) (0.04-0.36) K/mm3 Baso # (Auto) (0.01-0.08) K/mm3 Manual Slide Review D-Dimer, Quantitative (0.19-0.50) mg/L Sodium (136-145) mEq/L Potassium (3.5-5.1) mEq/L Chloride (98-107) mEq/L Carbon Dioxide (21-32) mEq/L Anion Gap (5-15) BUN (7-18) mg/dL Creatinine (0.55-1.02) mg/dL Est Cr Clr Drug Dosing Estimated GFR (MDRD) (>60) mL/min BUN/Creatinine Ratio (14-18) Glucose (70-99) mg/dL Calcium (8.5-10.1) mg/dL Total Bilirubin (0.2-1.0) mg/dL AST (15-37) U/L ALT (14-59) U/L Alkaline Phosphatase (46-116) U/L Troponin I (0.00-0.056) ng/mL Total Protein (6.4-8.2) g/dl Albumin (3.4-5.0) g/dl Globulin gm/dL Albumin/Globulin Ratio (1-2) Urine Color Yellow (Yellow) Urine Appearance Clear (Clear) Urine pH 7.5 (5.0-8.0) Ur Specific [place] 1.015 (1.005-1.030) Urine Protein Negative (Negative) Urine Glucose (UA) Negative (Negative) Urine Ketones 1+ H (Negative) Urine Occult Blood Negative (Negative) Urine Nitrite Negative (Negative) Urine Bilirubin Negative (Negative) Urine Urobilinogen 0.2 (0.2-1.0) Ur Leukocyte Esterase Negative (Negative) Meds: Medications Generic Name Dose Route Start Last Admin Trade Name Freq PRN Reason Stop Dose Admin Sodium Chloride 100 mls @ 75 mls/hr 04/28/21 09:45 04/28/21 10:40 Normal Saline IV 75 mls/hr ASDIRECTED RONNIE Administration Sodium Chloride 10 ml 04/28/21 09:06 04/28/21 10:40 Sodium Chloride 0.9% 10 Ml Syringe FLUSH 10 ml ONETIME PRN Administration IV FLUSH Discontinued Medications Generic Name Dose Route Start Last Admin Trade Name Freq PRN Reason Stop Dose Admin Al Hydroxide/Mg Hydroxide 30 0 ml 04/28/21 07:14 04/28/21 07:23 ml/ Lidocaine HCl 15 ml PO 04/28/21 07:15 45 ml ONETIME ONE Administration Diatrizoate Meglum/Diatrizoate Sod 120 ml 04/28/21 09:07 04/28/21 10:42 Diatrizoate Meglumine/Diatrizoate Sodium 37% 120 Ml Bottle PO 04/28/21 09:08 45 ml ONETIME ONE Administration Lactated Ringer's 1,000 mls @ 999 mls/hr 04/28/21 08:36 04/28/21 09:28 Ringers, Lactated IV 04/28/21 09:36 999 mls/hr .BOLUS ONE Administration Iopamidol 100 ml 04/28/21 09:06 Iopamidol 612 Mg/Ml 100 Ml Bottle IVPUSH 04/28/21 09:07 ONETIME ONE Iopamidol 100 ml 04/28/21 09:33 04/28/21 10:40 Iopamidol 755 Mg/Ml 100 Ml Bottle IVPUSH 04/28/21 09:34 100 ml ONETIME ONE Administration Metoclopramide HCl 5 mg 04/28/21 10:46 04/28/21 10:59 Metoclopramide 10 Mg/2 Ml Sdv IVPUSH 04/28/21 10:47 5 mg ONETIME ONE Administration Morphine Sulfate 4 mg 04/28/21 07:14 04/28/21 07:23 Morphine 4 Mg/Ml Syringe IVPUSH 04/28/21 07:15 4 mg ONETIME ONE Administration Morphine Sulfate 2 mg 04/28/21 10:26 Morphine 2 Mg/Ml Syringe IVPUSH 04/28/21 10:27 ONETIME ONE Morphine Sulfate 2 mg 04/28/21 10:26 04/28/21 10:45 Morphine 2 Mg/Ml Syringe IVPUSH 04/28/21 10:27 2 mg ONETIME ONE Administration Ondansetron HCl 4 mg 04/28/21 07:14 04/28/21 07:23 Ondansetron 4 Mg/2 Ml Sdv IVPUSH 04/28/21 07:15 4 mg ONETIME ONE Administration Ondansetron HCl 4 mg 04/28/21 09:48 04/28/21 09:52 Ondansetron 4 Mg/2 Ml Sdv IVPUSH 04/28/21 09:49 4 mg ONETIME ONE Administration - Re-Assessments/Exams Free Text/Narrative Re-Assessment/Exam: 04/28/21 08:54 Patient has a diagnosis of stage III ovarian cancer her pain is getting worse I cannot get any good history from the patient and apparently follow-up for the patient's been somewhat difficult. I am and have social work see if they can assess the situation and where she is at with this. With worsening pain we will go ahead and check a abdominal pelvic CT with IV and oral contrast 04/28/21 09:27 Patient's D-dimer is elevated this could be secondary to the malignancy however we will coordinate a chest CTA in conjunction with her abdomen pelvis CT. 04/28/21 11:09 The patient was evaluated by social work who was giving her some information on getting signed up from local Medicaid and other resources to help with her situation. The patient had a CTA of the chest done which does not show any pulmonary embolism and no acute changes noted. No mass or malignant suspicions mentioned. Awaiting abdomen pelvis report. 04/28/21 11:39 CT of the abdomen pelvis shows 3 pelvic masses which have increased in size from the prior exam the lower left abdominal wall mass is also increased in size and on the dome of the right lobe of the liver is a solid mass measuring 1.5 cm and a second small solid abnormality noted in the right lobe next to the gallbladder fossa metastatic disease is not excluded she is developing hydronephrosis the right ureter and collecting system which is caused by pelvic masses 04/28/21 12:05 Left a message with 1 call at [facility] in [place] to have urology return my call. Dr. Vasquez is in surgery at this time. 04/28/21 12:44 Case was discussed with who is kind enough to participate in the patient's care he is not sure stenting the patient is given a helper she may need interventional radiology to help with this. I did go back and reexamined the patient and when I press on her right flank and abdomen this seems to be where the pain is worse now before she was telling me the pain was worse on the left but when you palpate on her its worse on the right. I also discussed the case with Dr. Holland, hospitalist at [facility] in [place] who is kind enough to accept the patient. Departure - Departure Time of Disposition: 12:48 Disposition: DC/Tfer to [facility] 02 Clinical Impression: Metastatic disease, History of primary malignant neoplasm of right ovary, Hydronephrosis - Discharge Information Referrals: PCP,Not In Area [Primary Care Provider] - Forms: ED Department Discharge Sepsis Event Note (ED) - Evaluation Sepsis Screening Result: No Definite Risk - Focused Exam Vital Signs: Vital Signs Temp Pulse Resp BP Pulse Ox 04/28/21 06:53 36.8 C 99 20 125/108 H 100 - My Orders Last 24 Hours: My Active Orders 04/28/21 07:15 EKG Documentation Completion [RC] STAT 04/28/21 09:06 Sodium Chloride 0.9% [Saline Flush] 10 ml FLUSH ONETIME PRN 04/28/21 09:45 Sodium Chloride 0.9% [Normal Saline] 100 ml IV ASDIRECTED - Assessment/Plan Last 24 Hours: My Active Orders 04/28/21 07:15 EKG Documentation Completion [RC] STAT 04/28/21 09:06 Sodium Chloride 0.9% [Saline Flush] 10 ml FLUSH ONETIME PRN 04/28/21 09:45 Sodium Chloride 0.9% [Normal Saline] 100 ml IV ASDIRECTED
[2021-04-28] MEDS ORDERED: Ondansetron 4 MG/2 ML SDV IVPUSH ONE ×2 (07:14→09:48)
[2021-04-28] MEDS ORDERED: Morphine 4 MG/ML Syringe IVPUSH ONE (07:14)
[2021-04-28] MEDS ORDERED: Alum Hydrox/Mag Hydrox/Simeth 30 ML, Lidocaine 2% 15 ML PO ONE ×2 (07:14)
[2021-04-28] MEDS ORDERED: Lactated Ringers 1,000 ML IV ONE ×2 (08:36→13:13)
[2021-04-28] MEDS ORDERED: Iopamidol 612 MG/ML 100 ML Bottle IVPUSH ONE (09:06)
[2021-04-28] MEDS ORDERED: Sodium Chloride 0.9% 10 ML Syringe FLUSH PRN (09:06)
[2021-04-28] MEDS ORDERED: Diatrizoate Meglumine/Diatrizoate Sodium 37% 120 ML Bottle PO ONE (09:07)
[2021-04-28] MEDS ORDERED: Iopamidol 755 Mg/ML 100 ML Bottle IVPUSH ONE (09:33)
[2021-04-28] MEDS ORDERED: Sodium Chloride 0.9% 100 ML IV SCH (09:45)
[2021-04-28] MEDS ORDERED: Morphine 2 MG/ML SYRINGE IVPUSH ONE ×3 (10:26→13:12)
[2021-04-28] MEDS ORDERED: Metoclopramide 10 MG/2 ML SDV IVPUSH ONE (10:46)
--- NOTE | 2021-04-28 10:58 | CT ---
CT chest Technique: Multiple axial sections through the chest were obtained. Intravenous contrast was utilized. Comparison: Prior chest CT is not available, chest x-ray of 03/18/21 is available. Findings: Pulmonary arteries are well opacified. No filling defects are seen to indicate pulmonary embolism. Thoracic aorta shows no aneurysm. Soft tissue density within the superior mediastinum is seen compatible with normal thymic tissue. No mediastinal adenopathy or mass is seen. No pericardial thickening is seen. Lung window settings were reviewed. No acute parenchymal change is seen. No pleural effusions are seen. Bone window settings were reviewed. No acute osseous abnormality is appreciated. Impression: 1. No findings of pulmonary embolism. 2. Nothing acute is appreciated on CT study of the chest. Diagnostic code #1
--- NOTE | 2021-04-28 11:17 | CT ---
CT abdomen and pelvis Technique: Multiple axial sections were obtained from above the dome of the diaphragm inferiorly through the pubic symphysis. Intravenous and oral contrast was utilized. Delayed images were obtained through the bladder. Reconstructed coronal and sagittal images were obtained. Comparison: Prior CT abdomen and pelvis exam of 03/18/21. Findings: Three masses are identified within the pelvis. Largest mass measures 10.7 cm x 7.5 cm. This finding has significantly increased from prior study. Second mass measures approximately 5.7 cm x 4.7 cm which has increased from prior study. Third mass, which is located most anteriorly, measures 3.8 cm x 5.5 cm. This has also increased in size. A mass is also seen within the abdominal wall slightly to the left side within the anterior lower pelvis measuring 2.0 cm x 2.6 cm. This finding has also slightly increased in size. Solid abnormality is noted within the dome of the right lobe of the liver which measures 1.5 cm. This is an interval change from prior study. Second small abnormality is noted next to the gallbladder fossa which is also an interval change from prior study and measures about 4 mm. No additional liver abnormality is appreciated. Spleen size is normal. Adrenal glands shows no discrete abnormality. Pancreas is within normal limits. Kidneys show symmetric contrast enhancement. Right kidney shows dilated renal pelvis and collecting systems as well as dilated right ureter. This dilated right ureter is felt to be caused by the pelvic masses. Abdominal aorta shows no aneurysm. No retroperitoneal adenopathy or mesenteric abnormalities are seen. Appendix is not visualized with certainty. Mild increased stool is seen within portions of the colon. Bone window settings were reviewed which show no acute osseous abnormality. Small bone island is noted within the left femoral head. Impression: 1. Three pelvic masses which have increased in size from prior exam. Small anterior lower left abdominal wall mass is also slightly increased in size. As mentioned on prior report, these are suspicious for areas of tumor which are worsening. 2. Small solid mass within the dome of the right lobe of the liver measuring 1.5 cm. Second very small solid abnormality noted within the right lobe next to the gallbladder fossa which measures 4 mm. Difficult to exclude liver metastatic disease. 3. Hydronephrosis of the right ureter and collecting system which is caused by the pelvic masses. 4. Slight increased stool within the colon. No other acute abnormality is definitely appreciated. Diagnostic code #9
== END 2021-04-28 14:10 ==
LOC: JD.ED 06:38
DX: N13.30 Unspecified hydronephrosis (principal); Z85.43 Personal history of malignant neoplasm of ovary; Z88.8 Allergy status to other drugs, medicaments and biological substances; Z79.899 Other long term (current) drug therapy
CPT/HCPCS: 36415; 71275; 74177; 80053; 81003; 84484; 85025; 85379; 93005; 96374; 96375; 96376; 99285; A9270; J2270; J2405; J2765; J7120; Q9963; Q9967; 93010; 99284

== ENCOUNTER 2021-05-22 16:36 | Emergency (ER) | payer MEDICAID ==
[2021-05-22] MEDS ORDERED: Ondansetron 4 MG/2 ML SDV IVPUSH ONE (16:57)
[2021-05-22] MEDS ORDERED: HYDROmorphone 1 MG/ML Syringe IVPUSH ONE (16:58)
[2021-05-22] MEDS ORDERED: Sodium Chloride 0.9% 1,000 ML IV SCH (17:00)
[2021-05-22] MEDS ORDERED: HYDROmorphone 0.5 MG/0.5 ML Syringe IVPUSH ONE (18:52)
--- NOTE | 2021-05-22 18:53 | EDM.PDOC ---
ED HPI GENERAL MEDICAL PROBLEM - General Chief Complaint: Back Pain or Injury Stated Complaint: [facility] Time Seen by Provider: 05/22/21 16:44 Source of Information: Reports: Patient, EMS History Limitations: Reports: No Limitations - History of Present Illness INITIAL COMMENTS - FREE TEXT/NARRATIVE: The patient presents by [facility] for low back pain and abdominal pain. This started today. 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 She was seen here in April and sent to [place] and she had a nephrostomy tube placed. She does not currently have anything for pain. She has no fever, chills, cough, chest pain, shortness of breath, nausea or vomiting. 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 05/22/2021 reports that dianosis changed to testicular cancer recently r/y germ cell tumor - Past Surgical History Female Surgical History: Reports: Hysterectomy, Oophorectomy, Other (See Below) Other Female Surgeries/Procedures: cervical cancer Social & Family History - Tobacco Use Years of Tobacco use: 10 Packs/Tins Daily: 1 - Caffeine Use Caffeine Use: Reports: Coffee, Energy Drinks, Soda, Tea - Recreational Drug Use Recreational Drug Use: Yes Drug Use in Last 12 Months: Yes Recreational Drug Type: Reports: Marijuana/Hashish - Living Situation & Occupation Living situation: Reports: with Significant Other (Lives with her girlfriend.) Occupation: Unemployed ED ROS GENERAL - Review of Systems Review Of Systems: See Below Constitutional: Reports: No Symptoms HEENT: Reports: No Symptoms Respiratory: Reports: No Symptoms Cardiovascular: Reports: No Symptoms Endocrine: Reports: No Symptoms GI/Abdominal: Reports: Abdominal Pain. Denies: Nausea, Vomiting : Reports: No Symptoms Musculoskeletal: Reports: Back Pain ED EXAM,LOWER BACK PAIN/INJURY - Physical Exam Exam: See Below Exam Limited By: No Limitations General Appearance: Moderate Distress Ears: Normal External Exam Nose: Normal Inspection Head: Atraumatic, Normocephalic Neck: Normal Inspection Respiratory/Chest: No Respiratory Distress, Lungs Clear, Normal Breath Sounds Cardiovascular: Regular Rate, Rhythm, No Edema, No Murmur GI/Abdominal: Soft, No Organomegaly, No Mass, Tender (Moderate to severe pain upon palpation) Rectal (Female) Exam: Tenderness Extremities: Normal Inspection Course - Vital Signs Last Recorded V/S: Last Vital Signs Temp 97.2 F 05/22/21 16:45 Pulse 84 05/22/21 16:45 Resp 16 05/22/21 16:45 BP 146/100 H 05/22/21 16:45 Pulse Ox 100 05/22/21 16:45 - Orders/Labs/Meds Orders: Active Orders 24 hr Category Date Time Status Abdomen Pelvis wo Cont [CT] Stat Exams 05/22/21 16:57 Taken COMPREHENSIVE METABOLIC PN,CMP [CHEM] Stat Lab 05/22/21 17:40 Results LIPASE [CHEM] Stat Lab 05/22/21 17:40 Results UA W/MICROSCOPIC [URIN] Stat Lab 05/22/21 16:57 Ordered Sodium Chloride 0.9% [Normal Saline] 1,000 ml Med 05/22/21 17:00 Active IV ASDIRECTED ED Antiemetic Medication Reflex [OM.PC] Stat Oth 05/22/21 16:57 Ordered Medication Orders Sodium Chloride (Normal Saline) 1,000 mls @ 125 mls/hr IV ASDIRECTED RONNIE Labs: Laboratory Tests 05/22/21 05/22/21 Range/Units 17:40 17:40 WBC 3.47 L (3.98-10.04) K/mm3 RBC 3.43 L (3.98-5.22) M/mm3 Hgb 8.2 L D (11.2-15.7) gm/dl Hct 25.6 L (34.1-44.9) % MCV 74.6 L (79.4-94.8) fl MCH 23.9 L (25.6-32.2) pg MCHC 32.0 L (32.2-35.5) g/dl RDW Std Deviation 48.8 H (36.4-46.3) fL Plt Count 360 D (182-369) K/mm3 MPV 8.2 L (9.4-12.3) fl Neut % (Auto) 57.0 (34.0-71.1) % Lymph % (Auto) 40.1 (19.3-51.7) % Graham % (Auto) 2.0 L (4.7-12.5) % Eos % (Auto) 0.6 L (0.7-5.8) Baso % (Auto) 0.0 L (0.1-1.2) % Neut # (Auto) 1.98 (1.56-6.13) K/mm3 Lymph # (Auto) 1.39 (1.18-3.74) K/mm3 Graham # (Auto) 0.07 L (0.24-0.36) K/mm3 Eos # (Auto) 0.02 L (0.04-0.36) K/mm3 Baso # (Auto) 0.00 L (0.01-0.08) K/mm3 Manual Slide Review Abnormal smear Sodium 142 (136-145) mEq/L Potassium 3.6 (3.5-5.1) mEq/L Chloride 106 (98-107) mEq/L Carbon Dioxide 28 (21-32) mEq/L Anion Gap 11.6 (5-15) BUN 13 (7-18) mg/dL Estimated GFR (MDRD) > 60 (>60) mL/min Glucose 90 (70-99) mg/dL Calcium 8.7 D (8.5-10.1) mg/dL Total Bilirubin 0.4 (0.2-1.0) mg/dL AST 21 (15-37) U/L ALT 35 (14-59) U/L Alkaline Phosphatase 66 (46-116) U/L Total Protein 6.0 L (6.4-8.2) g/dl Albumin 2.6 L (3.4-5.0) g/dl Globulin 3.4 gm/dL Albumin/Globulin Ratio 0.8 L (1-2) Lipase 133 (73-393) U/L Meds: Medications Generic Name Dose Route Start Last Admin Trade Name Abel PRN Reason Stop Dose Admin Sodium Chloride 1,000 mls @ 125 mls/hr 05/22/21 17:00 Normal Saline IV ASDIRECTED RONNIE Discontinued Medications Generic Name Dose Route Start Last Admin Trade Name Abel PRN Reason Stop Dose Admin Hydromorphone HCl 1 mg 05/22/21 16:58 05/22/21 17:40 Hydromorphone 1 Mg/Ml Syringe IVPUSH 05/22/21 16:59 1 mg ONETIME ONE Administration Hydromorphone HCl 0.5 mg 05/22/21 18:52 Hydromorphone 0.5 Mg/0.5 Ml Syringe IVPUSH 05/22/21 18:53 ONETIME ONE Ondansetron HCl 4 mg 05/22/21 16:57 05/22/21 17:40 Ondansetron 4 Mg/2 Ml Sdv IVPUSH 05/22/21 16:58 4 mg ONETIME ONE Administration - Re-Assessments/Exams Free Text/Narrative Re-Assessment/Exam: 05/22/21 18:56 I had my nurse access her port. I ordered dilaudid 1mg IV, labs and a CT of her abdomen and pelvis without contrast. Her WBC was low at 3.47. Her Hgb was low at 8.2. Her CMP looks good. Her CT shows limited study due to lack of intravenous contrast and prominent fecal burden. Right collecting system appears decompressed by percutaneous nephrostomy catheter. Left sided hydronephrosis likely due to ureteral obstruction secondary to large mid pelvic pass. Heterogeneous and partially calcified mass in the mid pelvis measuring 11.3 X 10 X 10.1 cm. She feels much better. I will give her something more for pain and a prescription for more. 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 Abdominal pain Qualifiers: Abdominal location: generalized Qualified Code(s): R10.84 - Generalized abdominal pain Back pain Qualifiers: Back pain location: low back pain Chronicity: acute Back pain laterality: bilateral Sciatica presence: without sciatica Qualified Code(s): M54.5 - Low back pain Anemia Qualifiers: Anemia type: other cause Other causes of anemia: other cause, not classified Qualified Code(s): D64.89 - Other specified anemias - Discharge Information *PRESCRIPTION DRUG MONITORING PROGRAM REVIEWED*: Not Applicable *COPY OF PRESCRIPTION DRUG MONITORING REPORT IN PATIENT FRITZ: Not Applicable Referrals: PCP,Not In Area [Primary Care Provider] - Forms: ED Department Discharge Additional Instructions: Drink plenty of fluids. Take tylenol or motrin for pain. If that does not help, try the percocet. Follow up with your doctor. Please return if you are worse. Sepsis Event Note (ED) - Evaluation Sepsis Screening Result: No Definite Risk - Focused Exam Vital Signs: Vital Signs Temp Pulse Resp BP Pulse Ox 05/22/21 16:45 97.2 F 84 16 146/100 H 100 - My Orders Last 24 Hours: My Active Orders 05/22/21 16:57 Abdomen Pelvis wo Cont [CT] Stat UA W/MICROSCOPIC [URIN] Stat ED Antiemetic Medication Reflex [OM.PC] Stat 05/22/21 17:00 Sodium Chloride 0.9% [Normal Saline] 1,000 ml IV ASDIRECTED 05/22/21 17:40 COMPREHENSIVE METABOLIC PN,CMP [CHEM] Stat LIPASE [CHEM] Stat - Assessment/Plan Last 24 Hours: My Active Orders 05/22/21 16:57 Abdomen Pelvis wo Cont [CT] Stat UA W/MICROSCOPIC [URIN] Stat ED Antiemetic Medication Reflex [OM.PC] Stat 05/22/21 17:00 Sodium Chloride 0.9% [Normal Saline] 1,000 ml IV ASDIRECTED 05/22/21 17:40 COMPREHENSIVE METABOLIC PN,CMP [CHEM] Stat LIPASE [CHEM] Stat
--- NOTE | 2021-05-23 12:54 | CT ---
CT abdomen and pelvis Technique: Multiple axial sections were obtained from above the dome of the diaphragm inferiorly to the pubic symphysis. Intravenous and oral contrast were not utilized. Reconstructed coronal and sagittal images were obtained. Comparison: Prior CT abdomen and pelvis study of 04/28/21. Findings: Low density lesion is identified within the upper right lobe of the liver measuring 2.1 cm in size which measures about 1.3 cm on prior exam. 7 mm low-density area noted next to the gallbladder which may be questionably increased in size. Spleen is normal. Right kidney shows a nephrostomy tube. No ureteral dilatation is otherwise seen. Pancreas shows no discrete abnormality. Gallbladder contains no calcified gallstones. Abdominal aorta shows no aneurysm. No definite retroperitoneal adenopathy is seen. Pelvic masses are noted. Largest abnormality measures 10.9 cm which is slightly increased in size. Second abnormality measures approximately 5.7 cm. Third abnormality measures about 7.0 cm in size which is slightly increased from prior exam. There is urine being seen within the bladder. Mild increased stool is noted throughout the colon. Bone window settings were reviewed which show no acute osseous abnormality. Impression: 1. Two findings within the liver. Larger finding has increased Hounsfield unit measurements and is most likely solid. Findings could represent slight increasing metastatic disease. 2. Three pelvic masses are noted. Two of these are definitely increased in size from prior exam. 3. Right-sided hydronephrosis shows evidence of a nephrostomy tube. Diagnostic code #9 I mostly agree with preliminary report from [facility], finalized on 05/22/21, 7:29 PM CDT, code 2
== END 2021-05-22 19:30 | disposition home or self-care (01) ==
LOC: JD.ED 16:36
DX: C56.2 Malignant neoplasm of left ovary (principal); C79.89 Secondary malignant neoplasm of other specified sites; D64.89 Other specified anemias; Z72.0 Tobacco use; Z90.710 Acquired absence of both cervix and uterus; Z88.8 Allergy status to other drugs, medicaments and biological substances
CPT/HCPCS: 36415; 74176; 80053; 83690; 85025; 96374; 96375; 99284; J1170; J2405; J7030

== ENCOUNTER 2021-05-23 16:48 | Emergency (ER) | payer MEDICAID ==
[2021-05-23] MEDS ORDERED: Sodium Chloride 0.9% 1,000 ML IV ONE (17:07)
[2021-05-23] MEDS ORDERED: Sodium Chloride 0.9% 10 ML Syringe FLUSH PRN (17:07)
[2021-05-23] MEDS ORDERED: cefTRIAXone 2 GM in Sodium Chloride 0.9% 100 ML IV ONE ×2 (17:07→17:19)
[2021-05-23] MEDS ORDERED: HYDROmorphone 1 MG/ML Syringe IVPUSH ONE (17:11)
[2021-05-23] MEDS ORDERED: Ondansetron 4 MG/2 ML SDV IVPUSH ONE (17:21)
[2021-05-23] MEDS ORDERED: Acetaminophen 325 MG Tab PO ONE (17:37)
--- NOTE | 2021-05-23 17:37 | EDM.PDOC ---
ED HPI GENERAL MEDICAL PROBLEM - General Chief Complaint: Gastrointestinal Problem Stated Complaint: [facility] Time Seen by Provider: 05/23/21 16:56 Source of Information: Reports: Patient, EMS History Limitations: Reports: No Limitations - History of Present Illness INITIAL COMMENTS - FREE TEXT/NARRATIVE: The patient presents by [facility] for body aches and fever. The patient was seen here yesterday for abdominal pain and back pain. A CT was done and it showed the cancer in her pelvis and a nephrostomy tube. Her Hgb was low at 8.5. Her WBC was lower at 3.3. 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 She sees [facility] and she had chemotherapy last week. She has a slight cough. She has body aches. She has back pain again. She denies dysuria. She has a temp of 101 when she arrives. Onset: Gradual Duration: Day(s): Location: Reports: Generalized Quality: Reports: Ache Severity: Moderate Improves with: Reports: None Worsens with: Reports: None Associated Symptoms: Reports: Cough, Fever/Chills. 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 05/22/2021 reports that dianosis changed to testicular cancer recently r/y germ cell tumor - Past Surgical History Female Surgical History: Reports: Hysterectomy, Oophorectomy, Other (See Below) Other Female Surgeries/Procedures: cervical cancer Social & Family History - Tobacco Use Tobacco Use Status *Q: Never Tobacco User - Caffeine Use Caffeine Use: Reports: Coffee, Energy Drinks, Soda, Tea - Recreational Drug Use Recreational Drug Use: No - Living Situation & Occupation Living situation: Reports: with Significant Other (Lives with her girlfriend.) Occupation: Unemployed ED ROS GENERAL - Review of Systems Review Of Systems: See Below Constitutional: Reports: Fever, Chills, Malaise, Weakness, Fatigue HEENT: Reports: No Symptoms Respiratory: Reports: Cough. Denies: Shortness of Breath Cardiovascular: Reports: No Symptoms Endocrine: Reports: No Symptoms GI/Abdominal: Reports: Abdominal Pain. Denies: Nausea, Vomiting : Reports: No Symptoms Musculoskeletal: Reports: Muscle Pain ED EXAM, GI/ABD - Physical Exam Exam: See Below Exam Limited By: No Limitations General Appearance: Alert, No Apparent Distress Ears: Normal External Exam Nose: Normal Inspection Head: Atraumatic, Normocephalic Neck: Normal Inspection Respiratory/Chest: No Respiratory Distress, Lungs Clear, Normal Breath Sounds Cardiovascular: Regular Rate, Rhythm, No Edema, No Murmur GI/Abdominal Exam: Soft, No Organomegaly, No Mass, Tender (Mild generalized tenderness) Course - Vital Signs Last Recorded V/S: Last Vital Signs Temp 98.1 F 05/23/21 18:03 Pulse 114 H 05/23/21 16:54 Resp 22 H 05/23/21 16:54 BP 132/97 H 05/23/21 17:28 Pulse Ox 100 05/23/21 16:54 - Orders/Labs/Meds Orders: Active Orders 24 hr Category Date Time Status Blood Pressure Mgt: Sepsis [RC] Q15MX2 Care 05/23/21 17:07 Active Implanted Port Access [RC] ONETIME Care 05/23/21 17:10 Active Chest 1V Frontal [CR] Stat Exams 05/23/21 17:07 Taken CULTURE BLOOD [BC] Stat Lab 05/23/21 17:25 Received CULTURE BLOOD [BC] Stat Lab 05/23/21 17:35 Received CULTURE URINE [MREF] Stat Lab 05/23/21 19:01 Ordered REFLEX LACTIC ACID YES OR NO [CHEM] Routine Lab 05/23/21 18:07 Received Sodium Chloride 0.9% [Normal Saline] 1,000 ml Med 05/23/21 17:07 Active IV BOLUS Sodium Chloride 0.9% [Saline Flush] Med 05/23/21 17:07 Active 10 ml FLUSH ASDIRECTED PRN Blood Culture x2 Reflex Set [OM.PC] Stat Oth 05/23/21 17:07 Ordered Saline Lock Insert [OM.PC] Stat Oth 05/23/21 17:07 Ordered Medication Orders Sodium Chloride (Normal Saline) 1,000 mls @ 500 mls/hr IV BOLUS ONE; Protocol Stop: 05/23/21 19:06 Last Admin: 05/23/21 17:26 Dose: 500 mls/hr Documented by: JULIET Sodium Chloride (Sodium Chloride 0.9% 10 Ml Syringe) 10 ml FLUSH ASDIRECTED PRN PRN Reason: Keep Vein Open Last Admin: 05/23/21 17:26 Dose: 10 ml Documented by: JULIET Labs: Laboratory Tests 05/23/21 05/23/21 05/23/21 Range/Units 16:50 17:25 17:25 WBC 5.46 (3.98-10.04) K/mm3 RBC 3.68 L (3.98-5.22) M/mm3 Hgb 8.7 L (11.2-15.7) gm/dl Hct 27.3 L (34.1-44.9) % MCV 74.2 L (79.4-94.8) fl MCH 23.6 L (25.6-32.2) pg MCHC 31.9 L (32.2-35.5) g/dl RDW Std Deviation 49.5 H (36.4-46.3) fL Plt Count 447 H D (182-369) K/mm3 MPV 8.4 L (9.4-12.3) fl Neutrophils % (Manual) 81 H (40-60) % Band Neutrophils % 1 (0-10) % Lymphocytes % (Manual) 17 L (20-40) % Atypical Lymphs % 0 % Monocytes % (Manual) 1 L (2-10) % Eosinophils % (Manual) 0 L (0.7-5.8) % Basophils % (Manual) 0 L (0.1-1.2) Platelet Estimate Increased Hypochromasia 2+ moderate Anisocytosis 1+ slight Microcytosis 1+ slight RBC Morph Comment PT 11.0 (9.7-12.0) SECONDS INR 1.03 Sodium (136-145) mEq/L Potassium (3.5-5.1) mEq/L Chloride (98-107) mEq/L Carbon Dioxide (21-32) mEq/L Anion Gap (5-15) BUN (7-18) mg/dL Creatinine (0.55-1.02) mg/dL Est Cr Clr Drug Dosing Estimated GFR (MDRD) (>60) mL/min BUN/Creatinine Ratio (14-18) Glucose (70-99) mg/dL Lactic Acid (0.4-2.0) mmol/L Calcium (8.5-10.1) mg/dL Total Bilirubin (0.2-1.0) mg/dL AST (15-37) U/L ALT (14-59) U/L Alkaline Phosphatase (46-116) U/L C-Reactive Protein (<1.0) mg/dL Total Protein (6.4-8.2) g/dl Albumin (3.4-5.0) g/dl Globulin gm/dL Albumin/Globulin Ratio (1-2) Urine Color (Yellow) Urine Appearance (Clear) Urine pH (5.0-8.0) Ur Specific [place] (1.005-1.030) Urine Protein (Negative) Urine Glucose (UA) (Negative) Urine Ketones (Negative) Urine Occult Blood (Negative) Urine Nitrite (Negative) Urine Bilirubin (Negative) Urine Urobilinogen (0.2-1.0) Ur Leukocyte Esterase (Negative) Urine RBC (0-5) /hpf Urine WBC (0-5) /hpf Ur Squamous Epith Cells (0-5) /hpf Urine Bacteria (FEW) /hpf Urine Mucus (FEW) /hpf SARS-CoV-2 RNA (SCOTT) Negative (NEGATIVE) 05/23/21 05/23/21 05/23/21 Range/Units 17:25 17:25 18:30 WBC (3.98-10.04) K/mm3 RBC (3.98-5.22) M/mm3 Hgb (11.2-15.7) gm/dl Hct (34.1-44.9) % MCV (79.4-94.8) fl MCH (25.6-32.2) pg MCHC (32.2-35.5) g/dl RDW Std Deviation (36.4-46.3) fL Plt Count (182-369) K/mm3 MPV (9.4-12.3) fl Neutrophils % (Manual) (40-60) % Band Neutrophils % (0-10) % Lymphocytes % (Manual) (20-40) % Atypical Lymphs % % Monocytes % (Manual) (2-10) % Eosinophils % (Manual) (0.7-5.8) % Basophils % (Manual) (0.1-1.2) Platelet Estimate Hypochromasia Anisocytosis Microcytosis RBC Morph Comment PT (9.7-12.0) SECONDS INR Sodium 143 (136-145) mEq/L Potassium 3.2 L (3.5-5.1) mEq/L Chloride 104 (98-107) mEq/L Carbon Dioxide 28 (21-32) mEq/L Anion Gap 14.2 (5-15) BUN 9 (7-18) mg/dL Creatinine 0.9 (0.55-1.02) mg/dL Est Cr Clr Drug Dosing TNP Estimated GFR (MDRD) > 60 (>60) mL/min BUN/Creatinine Ratio 10.0 L (14-18) Glucose 95 (70-99) mg/dL Lactic Acid 3.2 H* (0.4-2.0) mmol/L Calcium 9.1 (8.5-10.1) mg/dL Total Bilirubin 0.4 (0.2-1.0) mg/dL AST 18 (15-37) U/L ALT 32 (14-59) U/L Alkaline Phosphatase 73 (46-116) U/L C-Reactive Protein 1.0 (<1.0) mg/dL Total Protein 6.8 (6.4-8.2) g/dl Albumin 3.1 L (3.4-5.0) g/dl Globulin 3.7 gm/dL Albumin/Globulin Ratio 0.8 L (1-2) Urine Color Light yellow (Yellow) Urine Appearance Slt cloudy H (Clear) Urine pH 8.5 H (5.0-8.0) Ur Specific [place] 1.020 (1.005-1.030) Urine Protein 1+ H (Negative) Urine Glucose (UA) Negative (Negative) Urine Ketones Negative (Negative) Urine Occult Blood 2+ H (Negative) Urine Nitrite Negative (Negative) Urine Bilirubin Negative (Negative) Urine Urobilinogen 0.2 (0.2-1.0) Ur Leukocyte Esterase 2+ H (Negative) Urine RBC 5-10 H (0-5) /hpf Urine WBC 5-10 H (0-5) /hpf Ur Squamous Epith Cells Not seen (0-5) /hpf Urine Bacteria Few (FEW) /hpf Urine Mucus Not seen (FEW) /hpf SARS-CoV-2 RNA (SCOTT) (NEGATIVE) Meds: Medications Generic Name Dose Route Start Last Admin Trade Name Freq PRN Reason Stop Dose Admin Sodium Chloride 1,000 mls @ 500 mls/hr 05/23/21 17:07 05/23/21 17:26 Normal Saline IV 05/23/21 19:06 500 mls/hr BOLUS ONE Administration Protocol Sodium Chloride 10 ml 05/23/21 17:07 05/23/21 17:26 Sodium Chloride 0.9% 10 Ml Syringe FLUSH 10 ml ASDIRECTED PRN Administration Keep Vein Open Discontinued Medications Generic Name Dose Route Start Last Admin Trade Name Freq PRN Reason Stop Dose Admin Acetaminophen 975 mg 05/23/21 17:37 05/23/21 18:03 Acetaminophen 325 Mg Tab PO 05/23/21 17:38 975 mg NOW ONE Administration Hydromorphone HCl 1 mg 05/23/21 17:11 05/23/21 17:25 Hydromorphone 1 Mg/Ml Syringe IVPUSH 05/23/21 17:12 1 mg ONETIME ONE Administration Ceftriaxone Sodium 2 gm/ 100 mls @ 200 mls/hr 05/23/21 17:07 05/23/21 17:20 Sodium Chloride IV 05/23/21 17:36 Not Given STAT ONE Ceftriaxone Sodium 2 gm/ 100 mls @ 200 mls/hr 05/23/21 17:19 05/23/21 17:26 Sodium Chloride IV 05/23/21 17:48 200 mls/hr ONETIME ONE Administration Ondansetron HCl 4 mg 05/23/21 17:21 05/23/21 17:25 Ondansetron 4 Mg/2 Ml Sdv IVPUSH 05/23/21 17:22 4 mg ONETIME ONE Administration - Re-Assessments/Exams Free Text/Narrative Re-Assessment/Exam: 05/23/21 17:39 I ordered port access, IV NS at 500ml/hr, dilaudid 1mg IV, rocephin 2 grams IV, labs, UA, blood cultures, CXR and COVID 19. 05/23/21 18:18 Her WBC is normal at 5.46. Her Hgb is 8.7. Her platelets are elevated at 447. Her INR is normal. Her K was a little low at 3.2. Her lactic acid is elevated at 3.2. Her COVID is negative. 05/23/21 19:01 Her urine from the nephrostomy tube shows an infection. I have cultures or the urine and blood. I feel she needs to be admitted but I feel she is to complicated for our facility. I called [facility] in [place] and talked with Dr Cody and and she accepted the patient. 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 Sepsis Qualifiers: Sepsis type: sepsis due to unspecified organism Sepsis acute organ dysfunction status: unspecified Qualified Code(s): A41.9 - Sepsis, unspecified organism UTI (urinary tract infection) Qualifiers: Urinary tract infection type: catheter-associated UTI Indwelling urinary catheter type: nephrostomy catheter Encounter type: initial encounter Qualified Code(s): T83.512A - Infection and inflammatory reaction due to nephrostomy catheter, initial encounter; N39.0 - Urinary tract infection, site not specified Anemia Qualifiers: Anemia type: other cause Other causes of anemia: other cause, not classified Qualified Code(s): D64.89 - Other specified anemias - Discharge Information Referrals: PCP,Not In Area [Primary Care Provider] - Forms: ED Department Discharge Sepsis Event Note (ED) - Evaluation Sepsis Screening Result: Possible Severe Sepsis Risk - Focused Exam Vital Signs: Vital Signs Temp Temp Pulse Resp BP Pulse Ox 05/23/21 18:03 98.1 F 05/23/21 17:28 132/97 H 05/23/21 16:54 101 F H 114 H 22 H 162/131 H 100 - My Orders Last 24 Hours: My Active Orders 05/23/21 17:07 Blood Pressure Mgt: Sepsis [RC] Q15MX2 Chest 1V Frontal [CR] Stat Sodium Chloride 0.9% [Normal Saline] 1,000 ml IV BOLUS Sodium Chloride 0.9% [Saline Flush] 10 ml FLUSH ASDIRECTED PRN Blood Culture x2 Reflex Set [OM.PC] Stat Saline Lock Insert [OM.PC] Stat 05/23/21 17:10 Implanted Port Access [RC] ONETIME 05/23/21 17:25 CULTURE BLOOD [BC] Stat 05/23/21 17:35 CULTURE BLOOD [BC] Stat 05/23/21 18:07 REFLEX LACTIC ACID YES OR NO [CHEM] Routine 05/23/21 19:01 CULTURE URINE [MREF] Stat - Assessment/Plan Last 24 Hours: My Active Orders 05/23/21 17:07 Blood Pressure Mgt: Sepsis [RC] Q15MX2 Chest 1V Frontal [CR] Stat Sodium Chloride 0.9% [Normal Saline] 1,000 ml IV BOLUS Sodium Chloride 0.9% [Saline Flush] 10 ml FLUSH ASDIRECTED PRN Blood Culture x2 Reflex Set [OM.PC] Stat Saline Lock Insert [OM.PC] Stat 05/23/21 17:10 Implanted Port Access [RC] ONETIME 05/23/21 17:25 CULTURE BLOOD [BC] Stat 05/23/21 17:35 CULTURE BLOOD [BC] Stat 05/23/21 18:07 REFLEX LACTIC ACID YES OR NO [CHEM] Routine 05/23/21 19:01 CULTURE URINE [MREF] Stat
--- NOTE | 2021-05-24 12:55 | CR ---
Chest: AP portable view of the chest was obtained. Comparison: Prior chest x-ray of 02/19/19. Right-sided infusion port is seen. Heart size and mediastinum are normal. Lungs are clear with no acute parenchymal change is seen. Bony structures show nothing acute. Impression: 1. Right-sided infusion catheter. 2. No acute abnormality is identified on portable chest x-ray. Diagnostic code #2
== END 2021-05-23 19:42 ==
LOC: JD.ED 16:48
DX: A41.9 Sepsis, unspecified organism (principal); T83.512A Infection and inflammatory reaction due to nephrostomy catheter, initial encounter; N39.0 Urinary tract infection, site not specified; D64.89 Other specified anemias; C56.2 Malignant neoplasm of left ovary; C79.89 Secondary malignant neoplasm of other specified sites; Z20.822 Contact with and (suspected) exposure to COVID-19; Z88.8 Allergy status to other drugs, medicaments and biological substances
CPT/HCPCS: 36415; 71045; 80053; 81001; 83605; 85007; 85027; 85610; 86140; 87040; 87086; 87088; 87186; 87635; 96365; 96375; 99285; A9270; J0696; J1170; J2405; J7030; 99284; U0002